=== PATIENT | male | born 1990 | race American Indian/Alaskan Native ===

== ENCOUNTER 2016-12-01 11:43 | Emergency (ER) | payer SELFPAY ==
[2016-12-01 11:49] VITALS: RESP 18; TEMP 97.7
--- NOTE | 2016-12-01 13:02 | C.PDOC ---
History Of Present Illness 26 y/o male c/o one week of right knee pain after being on a training exercise with [employer] last week, no recalled twisting of knee, no trauma, pt taking no analgesics, not applying cold packs. pt sts dec in swelling that was there earlier in week. Time Seen by Provider: 12/01/16 11:57 Chief Complaint (Nursing): Lower Extremity Problem/Injury History Per: Patient History/Exam Limitations: no limitations Onset/Duration Of Symptoms: Days (7) Severity: Moderate Pain Scale Rating Of: 5 Recent travel outside of the [place]: No Past Medical History Reviewed: Historical Data, Nursing Documentation, Vital Signs Vital Signs: Last Vital Signs Temp 97.7 F 12/01/16 13:06 Pulse 80 12/01/16 13:06 Resp 18 12/01/16 13:06 BP 134/84 12/01/16 13:06 Pulse Ox 98 12/01/16 16:07 - Medical History PMH: No Chronic Diseases Surgical History: No Surg Hx Family History: States: Unknown Family Hx - Social History Hx Tobacco Use: No Hx Alcohol Use: Yes Hx Substance Use: No - Immunization History Hx Tetanus Toxoid Vaccination: No Hx Influenza Vaccination: Yes Hx Pneumococcal Vaccination: No Review Of Systems Constitutional: Negative for: Fever, Chills Musculoskeletal: Positive for: Other (right knee pain). Negative for: Neck Pain , Back Pain Skin: Negative for: Rash Neurological: Negative for: Weakness, Numbness Physical Exam - Physical Exam Appears: Non-toxic, No Acute Distress Skin: Normal Color, Warm, Dry Head: Atraumatic, Normacephalic Neck: Normal ROM Back: Normal Inspection, No Vertebral Tenderness Extremity: Normal ROM, Tenderness (mild tenderness to right knee left and right side, from, no laxity noted, no erythema or swelling. ) Pulses: Left Dorsalis Pedis: Normal, Right Dorsalis Pedis: Normal Neurological/Psych: Oriented x3, Normal Speech, Normal Cognition ED Course And Treatment O2 Sat by Pulse Oximetry: 98 Medical Decision Making Medical Decision Making: pt decliners xray knee. unlikely to have a fx. will give nsaids and knee immobilizer with ortho f/u. Disposition Counseled Patient/Family Regarding: Diagnosis, Need For Followup, Rx Given - Disposition Referrals: Jacklyn Rai MD [Staff Provider] - Disposition: HOME/ ROUTINE Disposition Time: 12:59 Condition: STABLE Additional Instructions: Wear knee immobilizer for comfort. Follow up with orthopedics. Ibuprofen 600 mg by mouth every 6 hours for pain with food. Prescriptions: Ibuprofen [Motrin] 600 mg PO TID #30 tab Instructions: Knee Sprain (ED) Forms: General Discharge Instructions, Work Excuse - Clinical Impression Clinical Impression: Right knee sprain
[2016-12-01 13:06] VITALS: BP 134/84; PULSE 80
[2016-12-01 16:03] VITALS: O2SAT 98
== END 2016-12-01 13:22 | disposition home or self-care (01) ==
LOC: C.ER 11:43
DX: S83.91XA Sprain of unspecified site of right knee, initial encounter (principal); Y93.B9 Activity, other involving muscle strengthening exercises